=== PATIENT | female | born 1950 | race Caucasian/White ===

== ENCOUNTER 2021-03-02 12:42 | Observation (INO) | payer OTHER ==
[~2021-03-02] VITALS: Ht 167.6 cm; Wt 47.6 kg
[~2021-03-02 12:42] MED LIST: AZITHROMYCIN 2250 MG PO; HYDROCODON-ACE1 EAC8 PO; HYDROCODONE-AP1 EAC6 PO; PROMETHAZINE12.5 M1 PO; SIMVASTATIN10 MG PO
[2021-03-02 12:49] VITALS: BP 110/98
--- NOTE | 2021-03-02 13:26 | EKG ---
[place] [address] ELECTROCARDIOGRAM REPORT Name: SHAYLA HERNANDEZ Room: [facility]#: [id number] Admission: 03/02/21 Attend Phys: Discharge: Date of : 50 Date of Service: 03/02/21 1254 Report #: [id number] THIS REPORT FOR: //name// [facility] ED Test Date: 2021-03-02 Test Time: 12:54:58 Pat Name: SHAYLA HERNANDEZ Department: Room: Gender: Mechanical Manager: : 1950 Requested By: Pa Desai Order Number: [id number] MD: Piter Veloz Measurements Intervals [place] Rate: 97 P: 79 DC: 109 QRS: 104 QRSD: 87 T: 29 QT: 343 QTc: 436 Interpretive Statements Sinus rhythm Short DC interval Right atrial enlargement, possible Inferior Q waves noted Right axis deviation No previous ECG available for comparison Electronically Signed On 03-02-2021 13:26:48 CHANGE ANALYST by Piter Veloz [email or web address] <ELECTRONICALLY SIGNED> By: Piter Veloz MD, [facility] 03/02/21 1326 1254 1254 Piter Veloz MD, [facility] /EPI
[2021-03-02 13:29] LABS: ABSOLUTE LYMPHOCYTES 0.8 thou/uL (0.8-5.3); ABSOLUTE MONOCYTES 0.5 thou/uL (0.0-1.2); BASOPHILS 0.6 %; EOSINOPHILS 0.5 %; HEMATOCRIT 45.1 % (37.0-47.0); HEMOGLOBIN 15.1 gm/dL (12.0-15.0); LYMPHOCYTES 24.8 %; MCH 31.5 pg (26.0-34.0); MCHC 33.5 g/dL (28.0-37.0); MCV 94.1 fL (80.0-100.0); MONOCYTES 14.5 %; MPV 8.6 fl. (7.2-11.1); NUCLEATED RBCS 0 /100WBC; PLATELET COUNT* 132 thou/uL (150-400); POLYS 59.6 %; RBC 4.79 mil/uL (4.20-5.00); RDW-CV 13.3 % (10.5-14.5); WBC 3.4 thou/uL (4.0-11.0)
[2021-03-02 13:51] LABS: CREATININE 0.7 mg/dL (0.6-1.3)
[2021-03-02 14:01] LABS: ALBUMIN 3.9 g/dL (3.4-5.0); TOTAL BILIRUBIN 0.3 mg/dL (<0.1-1.0); TOTAL PROTEIN 7.4 g/dL (6.4-8.2)
[2021-03-02 14:14] LABS: BE 1.7 mmol/L (-2 to +3); PCO2 47.5 mmHg (35.0-45.0); PO2 100.7 mmHg (75.0-100.0); pH 7.381 (7.340-7.450)
[2021-03-02] MEDS ORDERED: ZINC50 M1 PO (14:52)
[2021-03-02] MEDS ORDERED: VITAMIN C1000 MG PO (14:52)
[2021-03-02] MEDS ORDERED: VITAMIN D3250 MC1 PO (14:52)
[2021-03-02] MEDS ORDERED: DEXAMETHASONE4 MG PO (14:53)
--- NOTE | 2021-03-02 15:53 | NUR ---
Physician ordered oxygen for patient for home. Pt needs 2 liters with activity and none with rest. Spoke with pt who reports she is staying with grandson: Debbie Kauffman [address] [place], [place] [address] As pt lives in [place] and is visting for awhile. Referred pt to [employer] as it is a [employer] company so that she can transition to their services if she still requires oxygen upon returning home to [place].
[2021-03-02 15:56] VITALS: BP 110/98
[2021-03-02] MEDS ORDERED: ASA81BEC PO (17:05)
[2021-03-02 18:24] VITALS: BP 147/75
== END 2021-03-02 18:26 | disposition home or self-care (01) ==
LOC: M.ERS 12:42 → M.TBA-ER 14:16
PROVIDERS: Emergency Medicine; ADMIT Internal Medicine; ATTEND Internal Medicine
DX: U07.1 COVID-19 (principal); J12.82 Pneumonia due to coronavirus disease 2019; J44.9 Chronic obstructive pulmonary disease, unspecified; J96.01 Acute respiratory failure with hypoxia; Z79.899 Other long term (current) drug therapy